=== PATIENT | female | born 1940 | race Caucasian/White ===

== ENCOUNTER 2016-02-23 10:18 | Emergency (ER) | payer OTHER ==
[~2016-02-23] VITALS: Ht 160 cm; Wt 75.6 kg
[~2016-02-23 10:18] MED LIST: ASPIRIN325 MG PO; ATHENOL325 MG PO; CENTRUM COMPLE1 EACH PO; Ceftin PO; DEPRESSION; DIOVAN; DIOVAN160 MG PO; GLUCOSAMINE-CH1 EA18 PO; IRBESARTAN150 MG PO; LEVAQUIN750 MG PO; REGLAN; SUGAR PILL; TOPROL; TOPROL XL100 MG PO; Toprol XL PO; VITAMIN D250000 UNIT PO; ZANTAC; [UNRECOGNIZED DRUG - OTHER]
[2016-02-23 10:54] LABS: HEMATOCRIT 36.8 % (36.0-46.0); MCH 30.7 PG (29.0-34.0); MCHC 32.3 G/DL (30.0-36.0); MCV 94.8 FL (83-99); MEAN PLAT.VOLUME 9.9 uM^3 (9.5-12.4); PLATELET COUNT 456 K/uL (156-360); RBC DIS.WIDTH-CV 14.2 % (11.8-14.6); RBC DIS.WIDTH-SD 47.2 % (39-53); RED BLOOD COUNT 3.88 M/uL (3.80-5.20); WHITE BLOOD COUNT 7.5 K/uL (4.1-10.2)
[2016-02-23 11:01] LABS: CHLORIDE 107 mEq/L (99-109); POTASSIUM 4.7 mEq/L (3.7-5.4); SODIUM 140 mEq/L (136-147)
[2016-02-23 11:04] LABS: GLUCOSE 95 mg/dL (70-99)
[2016-02-23 11:05] LABS: ANION GAP 9 MEQ/L (2-14)
[2016-02-23 11:06] LABS: TOTAL BILIRUBIN 0.6 mg/dL (0.0-1.0)
[2016-02-23 11:07] LABS: ALKALINE PHOSPHATASE 88 IU/L (3-129); GFR ESTIMATE (CALCULATED) > 59 mL/min/
[2016-02-23 11:08] LABS: UREA NITROGEN (BUN) 21 mg/dL (9-23)
[2016-02-23] MEDS ORDERED: DAILY VITE1 EAC1 PO (11:10)
[2016-02-23] MEDS ORDERED: FISH OIL300 MG PO (11:10)
[2016-02-23 11:11] LABS: LIPASE 62 U/L (1.0-51.0)
[2016-02-23 11:18] LABS: ADD MIUA? YES; BILIRUBIN NEGATIVE; BLOOD NEGATIVE; COLOR YELLOW ((YELLOW)); GLUCOSE (STRIP) NEGATIVE; KETONES NEGATIVE; LEUKOCYTES LARGE; NITRITE POSITIVE; PROTEIN (STRIP) NEGATIVE; SPECIFIC GRAVITY 1.019 (1.000-1.030); UROBILINOGEN 0.2 MG/DL (0.2-1.0)
[2016-02-23 11:38] LABS: BACTERIA 2+; CASTS NONE SEEN /LPF; CRYSTALS NONE SEEN; EPITHELIAL CELLS 1+; MUCUS NONE SEEN; RED BLOOD CELLS RARE /HPF (0-5); UCUL ADDED? YES
[2016-02-23] MEDS ORDERED: BACTRIM,SEPT1 TABLET PO (12:12)
[2016-02-23 12:30] VITALS: BP 153/86
== END 2016-02-23 12:35 | disposition home or self-care (01) ==
LOC: EME 10:18
DX: N39.0 Urinary tract infection, site not specified (principal); M54.5 Low back pain; I10 Essential (primary) hypertension; E78.5 Hyperlipidemia, unspecified
CPT/HCPCS: 71020; 72070; 72100; 80053; 81003; 83690; 85027; 87077; 87086; 87186; 99281; 99284; J1885

== ENCOUNTER 2017-05-09 13:24 | Emergency (ER) | payer OTHER ==
[~2017-05-09] VITALS: Ht 160 cm; Wt 74.8 kg
[~2017-05-09 13:24] MED LIST changes: +BACTRIM,SEPT1 TABLET PO; +DAILY VITE1 EAC1 PO; +FISH OIL300 MG PO
[2017-05-09 13:50] LABS: HEMATOCRIT 35.6 % (36.0-46.0); HEMOGLOBIN 11.9 G/DL (11.9-15.5); MCH 32.2 PG (29.0-34.0); MCHC 33.4 G/DL (30.0-36.0); PLATELET COUNT 366 K/uL (156-360); RBC DIS.WIDTH-CV 13.9 % (11.8-14.6); RBC DIS.WIDTH-SD 49.4 % (39-53); RED BLOOD COUNT 3.69 M/uL (3.80-5.20); WHITE BLOOD COUNT 5.4 K/uL (4.1-10.2)
[2017-05-09 14:00] LABS: CHLORIDE 106 mEq/L (99-109); POTASSIUM 4.1 mEq/L (3.7-5.4); SODIUM 141 mEq/L (136-147)
[2017-05-09 14:01] LABS: GLUCOSE 95 mg/dL (70-99)
[2017-05-09 14:05] LABS: CREATININE 0.7 mg/dL (0.6-1.3); GFR ESTIMATE (CALCULATED) > 59 mL/min/
[2017-05-09 14:06] LABS: UREA NITROGEN (BUN) 17 mg/dL (9-23)
[2017-05-09 14:17] LABS: MCV 96.5 FL (83-99)
[2017-05-09] MEDS ORDERED: VENTOLIN HFA18 GM IH (14:39)
[2017-05-09] MEDS ORDERED: TESSALON200 MG PO (14:39)
[2017-05-09] MEDS ORDERED: LEVAQUIN750 MG PO (14:39)
[2017-05-09 15:09] LABS: TROP-I INTERPRETATION NEGATIVE; TROPONIN-I < 0.01 ng/mL (0.0-0.30)
[2017-05-09 15:50] VITALS: BP 147/72
== END 2017-05-09 16:04 | disposition home or self-care (01) ==
LOC: EME 13:24
DX: J18.9 Pneumonia, unspecified organism (principal); I10 Essential (primary) hypertension
CPT/HCPCS: 71046; 80048; 84484; 85027; 93005; 94640; 99281; 99283